=== PATIENT | female | born 1980 | race Two or more races ===

== ENCOUNTER → 2021-02-24 | Day surgery (SDC) | payer OTHER | END | disposition home or self-care (01) | LOC: ADM 02-23 15:15 → AMB-ENDOS 12:30 | PROVIDERS: ATTEND Colon & Rectal Surgery | DX: K62.89 Other specified diseases of anus and rectum (principal); K64.8 Other hemorrhoids; Z12.11 Encounter for screening for malignant neoplasm of colon; Z20.822 Contact with and (suspected) exposure to COVID-19 ==